=== PATIENT | male | born 1990 | race Caucasian/White ===

== ENCOUNTER 2017-04-21 10:45 | Emergency (ER) | payer OTHER ==
[2017-04-21 10:56] VITALS: BP 139/89
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
--- NOTE | 2017-04-23 09:08 | CR ---
Right hand: Four views of the right hand were obtained. Comparison: No prior hand exam. Fingers held in flexion. This slightly limits the study. Soft tissue swelling is identified. No fracture, dislocation or other bony abnormality is seen. Impression: 1. Soft tissue swelling. No discrete bony abnormality is identified. Diagnostic code #2 Agree with preliminary report issued by [employer] [facility] ([facility] preliminary report dictated on 04/21/17, 1:25 PM Central Time)
== END 2017-04-21 12:47 | disposition home or self-care (01) ==
LOC: JD.ED 10:45
DX: S60.221A Contusion of right hand, initial encounter (principal); F17.210 Nicotine dependence, cigarettes, uncomplicated; Z98.890 Other specified postprocedural states; W22.01XA Walked into wall, initial encounter
CPT/HCPCS: 73130-26-RT; 73130-RT; 99283; 99284

== ENCOUNTER 2017-12-01 09:02 | Emergency (ER) | payer SELFPAY ==
[2017-12-01 09:24] VITALS: BP 135/89
--- NOTE | 2017-12-01 12:16 | EDM.PDOC ---
ED HPI GENERAL MEDICAL PROBLEM - General Chief Complaint: General Stated Complaint: RIGHT RIB PAIN Time Seen by Provider: 12/01/17 09:29 Source of Information: Reports: Patient, RN Notes Reviewed - History of Present Illness INITIAL COMMENTS - FREE TEXT/NARRATIVE: 27-year-old male comes in with right-sided chest pain. 8 see may have injured his chest twisting playing basketball about 5 days ago. Her he really did not feel much at that time. In about a day and a half later he started having more discomfort of the right chest wall that has steadily gotten worse. With any type of lifting, bending twisting turning he has severe pain of the right chest wall area. He has been taken ibuprofen with minimal relief. He does do construction type work for a living. No other known injury. No recent fall or blow to the chest. He is not short of breath. Slightly worse discomfort only with deep breathing. Other Treatments TOMOGRAPHY TECHNOLOGIST: Ibuprofen 800mg and Excedrin one hour ago. 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 Musculoskeletal Surgical History: Reports: Other (See Below) Other Musculoskeletal Surgeries/Procedures:: hand surgery Social & Family History - Tobacco Use Smoking Status *Q: Current Every Day Smoker Years of Tobacco use: 8 Packs/Tins Daily: 1 - Caffeine Use Caffeine Use: Reports: Coffee, Soda - Recreational Drug Use Recreational Drug Use: No ED ROS GENERAL - Review of Systems Review Of Systems: See Below Constitutional: Denies: Chills, Diaphoresis HEENT: Denies: Throat Pain Respiratory: Denies: Shortness of Breath, Pleuritic Chest Pain, Cough Cardiovascular: Reports: Chest Pain (Primarily with certain types of motion such as bending twisting or lifting.) GI/Abdominal: Denies: Abdominal Pain, Nausea, Vomiting Musculoskeletal: Denies: Neck Pain, Shoulder Pain, Arm Pain, Back Pain, Joint Pain Skin: Reports: No Symptoms Neurological: Denies: Numbness, Tingling, Weakness ED EXAM, GENERAL - Physical Exam Exam: See Below General Appearance: Alert, Mild Distress Throat/Mouth: Normal Inspection Head: Atraumatic Neck: Supple, Full Range of Motion Respiratory/Chest: No Respiratory Distress, Lungs Clear, Normal Breath Sounds, Other (There is quite severe tenderness of the right mid anterior chest, no crepitus, no bruising or swelling visible) Cardiovascular: Regular Rate, Rhythm GI/Abdominal: Soft, Non-Tender Back Exam: Normal Inspection. No: Paraspinal Tenderness, Vertebral Tenderness Extremities: Normal Inspection, Normal Range of Motion Neurological: Alert, Oriented, No Motor/Sensory Deficits Skin Exam: Warm, Dry, Normal Color EKG INTERPRETATION EKG Date: 12/01/17 Rhythm: NSR [place]: Normal P-Wave: Present QRS: Normal ST-T: Normal Course - Vital Signs Last Recorded V/S: Last Vital Signs Temp 97.6 F 12/01/17 09:19 Pulse 78 12/01/17 09:19 Resp 17 12/01/17 09:19 BP 135/89 12/01/17 09:19 Pulse Ox 100 12/01/17 09:19 - Orders/Labs/Meds Orders: Active Orders 24 hr Category Date Time Status EKG 12 Lead [EKG Documentation Completion] [RC] STAT Care 12/01/17 09:39 Inactive - Re-Assessments/Exams Free Text/Narrative Re-Assessment/Exam: 12/01/17 19:00 X-rays of the right ribs as well as chest x-ray normal. Departure - Departure Time of Disposition: 12:13 Disposition: Home, Self-Care 01 Condition: Fair Clinical Impression: Anterior chest wall pain - Discharge Information Prescriptions: Acetaminophen/HYDROcodone [[place] 325-5 MG] 1 tab PO Q6H PRN #10 tablet PRN Reason: Pain Instructions: Chest Wall Pain, [id number] Referrals: PCP,None [Primary Care Provider] - Forms: ED Department Discharge Additional Instructions: Avoid heavy lifting as best you can, consider wrapping your chest when working for extra support, continue ibuprofen 800 mg twice daily, you may take Tylenol in addition up to 3 times daily, you may take hydrocodone in the evening or at night to help you rest and sleep, do not drive or work when taking hydrocodone. Follow-up clinic if not getting back to normal within 1-2 weeks as expected. Return to ED as needed if symptoms worsening in any way. - My Orders Last 24 Hours: My Active Orders 12/01/17 09:39 EKG 12 Lead [EKG Documentation Completion] [RC] STAT - Assessment/Plan Last 24 Hours: My Active Orders 12/01/17 09:39 EKG 12 Lead [EKG Documentation Completion] [RC] STAT
--- NOTE | 2017-12-01 12:58 | CR ---
Chest and right ribs: Frontal view of the chest was obtained as well as three additional views of the left ribs. Comparison: No prior chest x-ray. Heart size and mediastinum are normal. Lungs are clear. No discrete fracture or other right-sided rib abnormality is seen. Impression: 1. No discrete abnormality is seen on right rib study. Nothing acute is seen on accompanying chest x-ray. Diagnostic code #1
== END 2017-12-01 12:30 | disposition home or self-care (01) ==
LOC: JD.ED 09:02
DX: R07.89 Other chest pain (principal); F17.210 Nicotine dependence, cigarettes, uncomplicated
CPT/HCPCS: 71101-26-RT; 71101-RT; 99283